=== PATIENT | female | born 1955 | race Asian ===

== ENCOUNTER 2019-12-09 11:17 | Emergency (ER) | payer OTHER ==
[~2019-12-09] VITALS: Ht 162.6 cm; Wt 51.3 kg
[~2019-12-09 11:17] MED LIST: AMBIEN5 MG PO; ASPI-COR81 M2 PO; ASPIR 8181 MG PO; ATIVAN1 MG PO; ATORVASTATIN CA20 M1 PO; CONSTULOSE10 GM/151 PO; DIGESTIVE ADVANTAGE PO; DUL5 PO; FERRO-TIME325 M1 PO; FERROUS SULFAT325 M2 PO; KLOR-CON 88 MEQ PO; LASIX20 MG PO; LIPITOR20 MG PO; LOTENSIN10 MG PO; MELATONIN1 TA1 PO; METFORMIN HCL500 M3 PO; METFORMIN500 M1 PO; METOCLOPRAMIDE5 M1 PO; METOPROLOL SUCC25 M1 PO; MORPHINE SULFAT30 M5 PO; MS CONTIN30 MG PO; ONDANSETRON2 MG/ML PO; OXYBUTYNIN5 M1 PO; PAN PO; PANCREAZE PO; PAROXETINE20 M1 PO; REG5 PO; SENNA PLUS1 TAB PO; SENNA8.6 M2 PO; TEMAZEPAM15 MG PO; VITAMIN D1000 I1 PO; ZOLPIDEM10 M1 PO
[2019-12-09 11:26] VITALS: Ht 162.6 cm; Wt 51.3 kg
[2019-12-09 12:45] VITALS: BP 92/45
== END 2019-12-09 12:45 | disposition left against medical advice (07) ==
LOC: ED 11:17
DX: S70.02XA Contusion of left hip, initial encounter (principal); I10 Essential (primary) hypertension; E11.9 Type 2 diabetes mellitus without complications; E78.00 Pure hypercholesterolemia, unspecified; G30.9 Alzheimer's disease, unspecified; F02.80 Dementia in other diseases classified elsewhere, unspecified severity, without behavioral disturbance, psychotic disturbance, mood disturbance, and anxiety; Z88.1 Allergy status to other antibiotic agents; Z88.2 Allergy status to sulfonamides; Z88.5 Allergy status to narcotic agent; Z88.6 Allergy status to analgesic agent; Z88.8 Allergy status to other drugs, medicaments and biological substances; W18.30XA Fall on same level, unspecified, initial encounter; Y93.89 Activity, other specified; Y92.89 Other specified places as the place of occurrence of the external cause; Y99.8 Other external cause status